=== PATIENT | female | born 1990 | race Caucasian/White ===

== ENCOUNTER 2018-08-29 16:55 | Inpatient (IN) | payer MEDICAID ==
[2018-08-29] MEDS ORDERED: MINERAL OIL LIGHT 10 ML VIAL TOP (18:00)
[2018-08-29] MEDS ORDERED: BUTORPHANOL 2 MG INJ IV (18:00)
[2018-08-29] MEDS ORDERED: OXYTOCIN 30 UNITS/LR 500 ML IV (18:00)
[2018-08-29] MEDS ORDERED: MISOPROSTOL 200 MCG TAB PR (18:00)
[2018-08-29] MEDS ORDERED: METHYLERGONOVINE 0.2 MG INJ IM (18:00)
[2018-08-29] MEDS ORDERED: CARBOPROST 250 MCG INJ IM (18:00)
[2018-08-29] MEDS ORDERED: OXYCODONE/ASPIRIN (4.88/325) TAB PO (18:00)
[2018-08-29] MEDS: LACTATED RINGER'S 1,000 ML IV (18:15)
[2018-08-29 18:39] LABS: ADD MAN DIFF? NO
[2018-08-29 18:43] LABS: BASOPHILS % 0.3 % (0.0-2.0); EOSINOPHILS # 0.1 10^3/ul (0.0-0.5); EOSINOPHILS % 0.9 % (0.0-7.0); HEMATOCRIT 40.7 % (37.0-47.0); HEMOGLOBIN 13.8 g/dl (12.0-16.0); LYMPHOCYTES # 2.8 10^3/ul (0.8-2.9); LYMPHOCYTES % 28.5 % (15.0-51.0); MEAN CORPUSCULAR HEMOGLOBIN 30.1 pg (29.0-33.0); MEAN CORPUSCULAR HGB CONC 33.9 g/dl (32.0-37.0); MEAN CORPUSCULAR VOLUME 88.9 fl (82.0-101.0); MEAN PLATELET VOLUME 11.2 fl (7.4-10.4); MONOCYTES % 9.7 % (0.0-11.0); NEUTROPHIL # 5.9 10^3/ul (1.6-7.5); NEUTROPHILS % 60.2 % (39.0-77.0); PLATELET COUNT 208 10^3/UL (140-415); RED BLOOD COUNT 4.58 10^6/ul (4.20-5.40); RED CELL DISTRIBUTION WIDTH 13.7 % (11.5-14.5)
[2018-08-29 18:43] LABS: WHITE BLOOD COUNT 9.9 10^3/ul (4.8-10.8)
[2018-08-29 19:04] LABS: INR 0.87; PROTIME 11.9 Sec (11.9-14.9); PT RATIO 0.9
[2018-08-29 19:05] LABS: PARTIAL THROMBOPLASTIN TIME 27.5 Sec (23.0-35.0)
[2018-08-29 19:08] LABS: ALANINE AMINOTRANSFERASE 22 IU/L (13-69); ALBUMIN 3.7 g/dl (3.3-4.9); ALBUMIN/GLOBULIN RATIO 1.02; ALKALINE PHOSPHATASE 288 IU/L (42-121); ANION GAP 11 (5-13); ASPARTATE AMINO TRANSFERASE 28 IU/L (15-46); BILIRUBIN,INDIRECT 0.4 mg/dl (0-1.1); BILIRUBIN,TOTAL 0.4 mg/dl (0.2-1.3); BLOOD UREA NITROGEN 10 mg/dl (7-20); CALCIUM 9.5 mg/dl (8.4-10.2); CARBON DIOXIDE 24 mmol/L (21-31); CHLORIDE 104 mmol/L (97-110); CREATININE 0.77 mg/dl (0.44-1.00); Estimated GFR > 60 mL/min (>60); GLUCOSE 80 mg/dl (70-220); POTASSIUM 4.1 mmol/L (3.5-5.1); SODIUM 139 mmol/L (135-144); TOTAL PROTEIN 7.3 g/dl (6.1-8.1); URIC ACID 5.5 mg/dl (3.1-7.9)
[2018-08-29 19:38] LABS: HEPATITIS B SURFACE ANTIGEN NEGATIVE (NEGATIVE)
[2018-08-29 22:25] LABS: ADD UMIC YES; UR ASCORBIC ACID NEGATIVE (NEGATIVE); UR BACTERIA FEW /HPF (NONE SEEN); UR BILIRUBIN (Dip) NEGATIVE (NEGATIVE); UR BLOOD (Dip) 1+ mg/dL (NEGATIVE); UR CLARITY CLEAR (CLEAR); UR COLOR STRAW (YELLOW); UR GLUCOSE (Dip) NEGATIVE (NEGATIVE); UR KETONES (Dip) NEGATIVE (NEGATIVE); UR LEUKOCYTE ESTERASE (Dip) NEGATIVE Leu/ul (NEGATIVE); UR NITRITE (Dip) NEGATIVE (NEGATIVE); UR RBC 1 /HPF (0-5); UR TOTAL PROTEIN (Dip) 2+ mg/dl (NEGATIVE); UR UROBILINOGEN (Dip) NEGATIVE (NEGATIVE); UR WBC 0 /HPF (0-5)
[2018-08-29] MEDS ORDERED: MAGNESIUM SULFATE 4 GM/100 ML 100 ML (22:52)
[2018-08-29] MEDS ORDERED: MAGNESIUM SULFATE 20 GM/500 ML 500 ML IV (22:52)
[2018-08-29] MEDS ORDERED: CA GLUCONATE (GM) 10% 10ML INJ IV (23:00)
[2018-08-29] MEDS ORDERED: NACL 0.9% 3 ML SYG IV (23:00)
[2018-08-29] MEDS: MAGNESIUM SULFATE 4 GM/100 ML 100 ML IV (23:09)
[2018-08-29] MEDS: MAGNESIUM SULFATE 20 GM/500 ML 500 ML IV (23:45)
[2018-08-30] MEDS: LACTATED RINGER'S 1,000 ML IV ×2 (01:43→16:09)
[2018-08-30] MEDS: OXYTOCIN 30 UNITS/LR 500 ML IV ×3 (04:59→10:20)
[2018-08-30] MEDS: LIDOCAINE 1% (MPF) 30 ML INJ INJ (05:05)
[2018-08-30] MEDS: IBUPROFEN 600 MG TAB PO ×3 (07:22→18:20)
[2018-08-30 07:49] LABS: MAGNESIUM 5.5 mg/dl (1.7-2.5)
[2018-08-30] MEDS: MAGNESIUM SULFATE 20 GM/500 ML 500 ML IV ×2 (08:17→16:08)
[2018-08-30] MEDS ORDERED: METHYLERGONOVINE 0.2 MG INJ IM (09:00)
[2018-08-30] MEDS ORDERED: OXYCODONE/ASPIRIN (4.88/325) TAB PO ×2 (09:00)
[2018-08-30] MEDS ORDERED: MISOPROSTOL 200 MCG TAB PR (09:00)
[2018-08-30] MEDS ORDERED: CARBOPROST 250 MCG INJ IM (09:00)
[2018-08-30] MEDS ORDERED: ZOLPIDEM 5 MG TAB PO (09:00)
[2018-08-30] MEDS ORDERED: LANOLIN HPA 1 PKT TOP (09:00)
[2018-08-30] MEDS ORDERED: OXYTOCIN 30 UNITS/LR 500 ML IV (09:00)
[2018-08-30] MEDS: SENNA/DOCUSATE NA (8.6MG/50MG) TAB PO ×2 (10:17→21:00)
[2018-08-30] MEDS: WITCH HAZEL/GLYCERIN PAD PR (10:17)
[2018-08-30] MEDS: BENZOCAINE 20% 56 ML SPRAY TOP (10:18)
[2018-08-30 12:56] LABS: MAGNESIUM 5.4 mg/dl (1.7-2.5)
[2018-08-30 18:09] LABS: RAPID PLASMA REAGIN NONREACTIVE (NR)
[2018-08-30 18:53] LABS: MAGNESIUM 5.8 mg/dl (1.7-2.5)
[2018-08-31] MEDS: IBUPROFEN 600 MG TAB PO ×5 (00:30→23:55)
[2018-08-31 01:12] LABS: MAGNESIUM 5.9 mg/dl (1.7-2.5)
[2018-08-31] MEDS: MAGNESIUM SULFATE 20 GM/500 ML 500 ML IV (01:58)
[2018-08-31 07:46] LABS: ADD MAN DIFF? NO
[2018-08-31 07:50] LABS: BASOPHILS % 0.4 % (0.0-2.0); EOSINOPHILS # 0.2 10^3/ul (0.0-0.5); EOSINOPHILS % 1.7 % (0.0-7.0); HEMATOCRIT 32.7 % (37.0-47.0); LYMPHOCYTES # 2.8 10^3/ul (0.8-2.9); LYMPHOCYTES % 28.7 % (15.0-51.0); MEAN CORPUSCULAR HEMOGLOBIN 30.6 pg (29.0-33.0); MEAN CORPUSCULAR HGB CONC 33.6 g/dl (32.0-37.0); MEAN CORPUSCULAR VOLUME 90.8 fl (82.0-101.0); MEAN PLATELET VOLUME 10.3 fl (7.4-10.4); MONOCYTE # 0.8 10^3/ul (0.3-0.9); MONOCYTES % 8.1 % (0.0-11.0); NEUTROPHILS % 60.7 % (39.0-77.0); PLATELET COUNT 175 10^3/UL (140-415); RED CELL DISTRIBUTION WIDTH 13.8 % (11.5-14.5)
[2018-08-31 07:50] LABS: WHITE BLOOD COUNT 9.9 10^3/ul (4.8-10.8)
[2018-08-31 08:12] LABS: MAGNESIUM 4.5 mg/dl (1.7-2.5)
[2018-08-31] MEDS: SENNA/DOCUSATE NA (8.6MG/50MG) TAB PO ×2 (09:24→21:17)
[2018-08-31] MEDS: BENZOCAINE 20% 56 ML SPRAY TOP (21:18)
[2018-09-01] MEDS: WITCH HAZEL/GLYCERIN PAD PR (00:01)
[2018-09-01] MEDS: IBUPROFEN 600 MG TAB PO ×2 (05:40→12:18)
[2018-09-01] MEDS: SENNA/DOCUSATE NA (8.6MG/50MG) TAB PO (08:41)
[2018-09-01] MEDS: DIPHTH/TET/ACEL PERTUSS (ADULT) 0.5 ML VIAL IM* (09:00)
== END 2018-09-01 14:15 | disposition home or self-care (01) | DRG 807 ==
LOC: PP1 08-30 08:46 → L-D 16:55
PROVIDERS: Obstetrics & Gynecology
PROC: 10E0XZZ Delivery of Products of Conception, External Approach (ICD-10-PCS; principal; 2018-08-30)
PROC: 0HQ9XZZ Repair Perineum Skin, External Approach (ICD-10-PCS; 2018-08-30)
DX: O14.94 Unspecified pre-eclampsia, complicating childbirth (principal); Z37.0 Single live birth; O77.0 Labor and delivery complicated by meconium in amniotic fluid; O13.4 Gestational [pregnancy-induced] hypertension without significant proteinuria, complicating childbirth; O70.9 Perineal laceration during delivery, unspecified; Z3A.38 38 weeks gestation of pregnancy
CPT/HCPCS: 80053; 81001; 83735; 84560; 85025; 85610; 85730; 86592; 86850; 86900; 86901; 87340; 88307; 99464